=== PATIENT | female | born 1995 | race African-American/Black ===

== ENCOUNTER 2025-09-13 11:05 | Inpatient (IN) ==
--- NOTE | 2025-09-13 13:25 | XRay Report ---
XR chest 2V PA/lateral CLINICAL HISTORY: Shortness of breath. COMPARISON STUDY: Chest radiograph July 23, 2025. FINDINGS: There is moderate elevation of the right hemidiaphragm. A dual lumen right internal jugular central venous catheter remains in place. Mild enlargement of the cardiac silhouette is unchanged. M ediastinal contours are stable. There is no pneumothorax. There are suspected trace bilateral pleural effusions. Interstitial thickening has developed. There are mild left basilar opacities. IMPRESSION: 1. Interval development of interstitial thickening suggestive of interstitial pulmonary edema. 2. Mild left basilar opacities. A superimposed infectious process cannot be excluded. Radiographic fo llow-up to ensure resolution is recommended. ACT 112: Negative or not required by law. Electronically signed by: Mandeep Garcia M.D. 09/13/2025 1:23 PM
[2025-09-13 15:33] LABS: Albumin Level 4.9 gm/dl (3.4-5.0); Anion Gap 14 (3-11); Bilirubin,Total 0.3 mg/dl (0.2-1.0); Calcium 10.0 mg/dl (8.6-10.3); Carbon Dioxide 29 mmol/L (21-32); Chloride 94 mmol/L (98-107); Magnesium 1.8 mg/dl (1.7-2.4); Potassium 2.7 mmol/L (3.5-5.1); Sodium 137 mmol/L (136-145)
[2025-09-13 15:34] LABS: Alanine Aminotransferase 8 U/L (7-52); Albumin Globulin Ratio 1.1 (0.9-2); Alkaline Phosphatase 107 U/L (34-104); Blood Urea Nitrogen 30 mg/dl (6-23); Globulin 4.4 gm/dl (2.5-4.0); Glucose 83 mg/dl (70-99(Fasting)); Total Protein 9.3 gm/dl (6.0-8.3)
[2025-09-13] MEDS: POTASSIUM CHLORIDE CRTAB 20 MEQ TABCR PO STA (15:38)
[2025-09-13 15:50] LABS: Hematocrit (blood only) 23.5 % (37.0-47.0); Hemoglobin 7.4 g/dL (12.0-16.0); Immature Granulocytes # (auto) 0.03 K/uL (0.01-0.20); Immature Granulocytes % (auto) 0.4 %; Mean Corpuscular Hemoglobin 28.2 pg (25.0-34.0); Mean Corpuscular Volume 89.7 fL (80.0-100.0); Platelet Count 180 K/uL (130-400); RDW Standard Deviation 46.5 fL (36.4-46.3); Red Blood Count 2.62 M/uL (4.20-5.40); White Blood Count 7.34 K/ul (4.8-10.8)
--- NOTE | 2025-09-13 15:53 | Emergency Department Note ---
History of Present Illness General Chief complaint: Shortness of Breath/Dyspnea Stated complaint: SOB Source: patient Mode of arrival: ambulatory Limitations: no limitations History of Present Illness Patient is a 30 y.o. F with h/o ESRD on home HD, SLE, HTN, Chronic anemia who presents after syncopal event today. She was just finishing up her dialysis session when she got up from her chair and felt lightheaded and passed out. Loss of consciousness was brief. She did report some shortness of breath after dialysis that has resolved. Denies any recent fevers, chills, headache, vision change, speech change, numbness or weakness to her face or extremities. No reported chest pain, abdominal pain, nausea or vomiting. She says she has had prior syncopal events related to taking too much fluid off during dialysis which she may have done today. Home Medications Medication Instructions Recorded Confirmed Type hydroxychloroquine 200 mg tablet 200 mg PO Q OTHER DAY 07/23/25 07/23/25 History (Plaquenil) mycophenolate mofetil 200 mg/mL 600 mg PO BID 07/23/25 07/23/25 History oral suspension prednisone 5 mg tablet 5 mg PO DAILY 07/23/25 07/23/25 History sildenafil (pulm.hypertension) 20 20 mg PO TID 07/23/25 07/23/25 History mg tablet acetaminophen 325 mg tablet 650 mg (2 x 325 mg) PO Q4H PRN 07/24/25 Rx fever or pain #300 tabs sacubitril 24 mg-valsartan 26 mg 1 tab PO BID #60 tabs 07/24/25 Rx tablet (Entresto) Allergies Allergy/AdvReac Type Severity Reaction Status Date / Time heparin AdvReac Unverified 07/24/25 08:46 Past Med/Surg History Problem List (Updated 09/13/25 @ 16:21 by Mamadou Carpenter MD) Pulmonary edema (Acute) Acute hypokalemia (Acute) Acute on chronic anemia (Acute) Syncope (Acute) Anemia secondary to renal failure Chronic respiratory failure Immunosuppression due to chronic steroid use SLE (systemic lupus erythematosus) Uncontrolled hypertension Pulmonary hypertension associated with chronic renal failure on dialysis Viral syndrome Viral gastroenteritis Vascular dialysis catheter in place Hypertension Dizziness ESRD on dialysis (Acute) Generalized body aches (Acute) Social History Smoking Status: Never smoker Hx Alcohol Use: No Hx Substance Use: No Preferred Language: Bhutanese Communication Ability: Effective Rail Director Required: No Beliefs That Will Affect Care: None Current Living Situation: Alone Current Living Situation Comment: with her 5 year old son Feels Safe at Home: Yes Assistive Devices: Oxygen - at Night Review of Systems Review of systems negative outside of positive findings mentioned in HPI. Physical Exam Vital Signs Vital Signs - 24 hr 09/13/25 11:18 09/13/25 14:30 09/13/25 15:22 Temperature 36.4 C L Temperature Source Oral Pulse Rate Pulse Rate [Apical] 108 H 99 H 96 H Pulse Rate from SpO2 Sensor Pulse Rhythm [Apical] Regular Pulse Strength [Apical] Normal Respiratory Rate 16 18 Respiratory Effort / Characteristics Non-Labored Spontaneous Respiratory Depth Normal Normal Blood Pressure [Left Arm] 158/101 H 157/114 H 152/85 H Blood Pressure Mean [Left Arm] 120 128 107 Blood Pressure Position [Left Arm] Lying Lying Pulse Oximetry 99 100 100 Oxygen Delivery Method Room Air Nasal Cannula Room Air Oxygen Flow Rate 2 09/13/25 15:24 09/13/25 15:30 09/13/25 15:34 Temperature Temperature Source Pulse Rate 99 H 92 H 98 H Pulse Rate [Apical] Pulse Rate from SpO2 Sensor 99 H 94 H Pulse Rhythm [Apical] Pulse Strength [Apical] Respiratory Rate 14 27 H Respiratory Effort / Characteristics Respiratory Depth Blood Pressure [Left Arm] Blood Pressure Mean [Left Arm] Blood Pressure Position [Left Arm] Pulse Oximetry 100 100 Oxygen Delivery Method Nasal Cannula Nasal Cannula Oxygen Flow Rate 2 2 09/13/25 16:00 Temperature Temperature Source Pulse Rate 88 Pulse Rate [Apical] Pulse Rate from SpO2 Sensor 89 Pulse Rhythm [Apical] Pulse Strength [Apical] Respiratory Rate 35 H Respiratory Effort / Characteristics Respiratory Depth Blood Pressure [Left Arm] Blood Pressure Mean [Left Arm] Blood Pressure Position [Left Arm] Pulse Oximetry 100 Oxygen Delivery Method Nasal Cannula Oxygen Flow Rate 2 See below. Constitutional WD/WN, vitals as above Respiratory diffuse rhonchi, mild tachypnea, no accessory muscle use Cardiovascular Rate/Rhythm: + tachycardic Heart Sounds: normal S1 and normal S2 Extremities: no edema Course Administered Medications Discontinued Medications Potassium Chloride (Potassium Chloride Crtab 20 Meq Tabcr) 60 meq PO NOW STA Stop: 09/13/25 15:28 Last Admin: 09/13/25 15:38 Dose: 60 meq Documented By: shanna Medical Decision Making Differential Diagnosis DDx includes but not limited to: Cardiac arrhythmia, acute anemia, metabolic abnormality, vasovagal syncope, orthostatic hypotension Medical Records Attestation: I reviewed the patient's medical records. Home Medications Current Medication List: was personally reviewed by me Laboratory Data Attestation: I reviewed the patient's lab results. 09/13/25 15:20 09/13/25 12:29 Lab Results 09/13/25 09/13/25 09/13/25 Range/Units 12:12 12:29 15:20 WBC Cancelled 7.34 RBC Cancelled 2.62 L Hgb Cancelled 7.4 L Hct Cancelled 23.5 L MCV Cancelled 89.7 MCH Cancelled 28.2 MCHC Cancelled 31.5 L RDW Std Deviation Cancelled 46.5 H RDW Coeff of Ignacio Cancelled 14.3 Plt Count Cancelled 180 MPV Cancelled 11.8 Immature Gran % (Auto) Cancelled 0.4 Neut % (Auto) Cancelled 85.3 Lymph % (Auto) Cancelled 5.2 [place] % (Auto) Cancelled 8.3 Eos % (Auto) Cancelled 0.5 Baso % (Auto) Cancelled 0.3 Neut # (Auto) Cancelled 6.26 Lymph # (Auto) Cancelled 0.38 L [place] # (Auto) Cancelled 0.61 H Eos # (Auto) Cancelled 0.04 Baso # (Auto) Cancelled 0.02 Immature Gran # (Auto) Cancelled 0.03 Absolute Nucleated RBC Cancelled Nucleated RBC % (auto) Cancelled Neutrophils % (Manual) Cancelled Band Neutrophils % Cancelled Lymphocytes % (Manual) Cancelled Prolymphocyte % Cancelled Reactive Lymphs % (Man) Cancelled Monocytes % (Manual) Cancelled Eosinophils % (Manual) Cancelled Basophils % (Manual) Cancelled Metamyelocytes % (Man) Cancelled Myelocytes % (Man) Cancelled Promyelocytes % (Man) Cancelled Blast Cells % (Manual) Cancelled Plasma Cell % (Manual) Cancelled Other Cells % Cancelled Nucleated RBC % Cancelled Neutrophils # (Manual) Cancelled Band Neutrophils # Cancelled Total Absolute Neuts Cancelled Lymphocytes # (Manual) Cancelled Prolymphocyte # Cancelled Reactive Lymphs # Cancelled Total Abs Lymphocytes Cancelled Monocytes # (Manual) Cancelled Eosinophils # (Manual) Cancelled Basophils # (Manual) Cancelled Metamyelocytes # (Man) Cancelled Myelocytes # (Manual) Cancelled Promyelocytes # (Man) Cancelled Blast Cells # (Man) Cancelled Plasma Cell # (Manual) Cancelled Other Cells # Cancelled Nucleated RBCs # (Man) Cancelled Hypersegmented Neuts Cancelled Hyposegmented Neuts Cancelled Hypogranular Neuts Cancelled Large Granular Lymphs Cancelled # Lrg Granular Lymphs Cancelled Hairy Cells Cancelled Smudge Cells Cancelled Toxic Granulation Cancelled Toxic Vacuolation Cancelled Dohle Bodies Cancelled Jocelyn Rods Cancelled Platelet Estimate Cancelled Hypogranular Platelets Cancelled Giant Platelets Cancelled Platelet Satelliting Cancelled RBC Morphology Cancelled Polychromasia Cancelled Hypochromasia Cancelled Poikilocytosis Cancelled Basophilic Stippling Cancelled Anisocytosis Cancelled Present Microcytosis Cancelled Macrocytosis Cancelled Spherocytes Cancelled Pappenheimer Bodies Cancelled Sickle Cells Cancelled Target Cells Cancelled Tear Drop Cells Cancelled 1+ Ovalocytes Cancelled 1+ Stomatocytes Cancelled [place] Bodies Cancelled Echinocytes Cancelled Acanthocytes (Spur) Cancelled Rouleaux Cancelled RBC Agglutinates Cancelled Schistocytes Cancelled Sezary Cell Cancelled Sodium 137 (136-145) mmol/L Potassium 2.7 L (3.5-5.1) mmol/L Chloride 94 L (98-107) mmol/L Carbon Dioxide 29 (21-32) mmol/L Anion Gap 14 H (3-11) BUN 30 H (6-23) mg/dl Creatinine 6.75 H* (0.6-1.2) mg/dl Est Cr Clr Drug Dosing Not Reportable eGFR 7.76 BUN/Creatinine Ratio 4.4 L (10-20) Glucose 83 (70-99(Fasting)) mg/dl Calcium 10.0 (8.6-10.3) mg/dl Magnesium 1.8 (1.7-2.4) mg/dl Total Bilirubin 0.3 (0.2-1.0) mg/dl AST 17 (13-39) U/L ALT 8 (7-52) U/L Alkaline Phosphatase 107 H (34-104) U/L Troponin I High Sens 63.5 H* (0-14) pg/ml Total Protein 9.3 H (6.0-8.3) gm/dl Albumin 4.9 (3.4-5.0) gm/dl Globulin 4.4 H (2.5-4.0) gm/dl Albumin/Globulin Ratio 1.1 (0.9-2) Blood Parasites ID Cancelled Blood Type O Positive Antibody Screen NEGATIVE Imaging Data Attestation: I personally reviewed and interpreted this imaging study as follows: My Impression: Interstitial edema noted, basilar opacities on the left Radiologist's Impression: Chest X-Ray 09/13/25 00:00 XR chest 2V PA/lateral CLINICAL HISTORY: Shortness of breath. COMPARISON STUDY: Chest radiograph July 23, 2025. FINDINGS: There is moderate elevation of the right hemidiaphragm. A dual lumen right internal jugular central venous catheter remains in place. Mild enlargement of the cardiac silhouette is unchanged. Mediastinal contours are stable. There is no pneumothorax. There are suspected trace bilateral pleural effusions. Interstitial thickening has developed. There are mild left basilar opacities. IMPRESSION: 1. Interval development of interstitial thickening suggestive of interstitial pulmonary edema. 2. Mild left basilar opacities. A superimposed infectious process cannot be excluded. Radiographic follow-up to ensure resolution is recommended. ACT 112: Negative or not required by law. Electronically signed by: Mandeep Garcia M.D. 09/13/2025 1:23 PM ECG Data Attestation: I personally reviewed and interpreted this ECG as follows: Indication: + SOB/dyspnea and + tachycardia Rate (beats per minute): 106 Rhythm: + sinus tachycardia ECG Intervals/blocks: + Normal QRS, + Prolonged QT and + Normal NC ECG [place]: + Normal ECG ST segments: + Nonspecific ST abnormalities ECG Findings: + LVH Comparison ECG Date: from (08/22/2025) Additional Comments: Ventricular rate elevated from prior. Blood Pressure Blood Pressure Findings: Elevated blood pressure MDM Narrative Patient is a 30-year-old female with history of end-stage renal disease on home dialysis who presents after syncopal event. She did not complete her dialysis session today. On arrival here in the emergency room she is awake and alert. Hemodynamically stable. No focal neurologic deficits noted. No concerning prodrome prior to syncopal event. Likely secondary to overdiuresis. Lab work was reviewed. Acute on chronic anemia noted. Baseline of 9-9.5. Hemoglobin today of 7.4. CMP shows evidence of hypokalemia at 2.7. This was repleted orally here in the ED at patient request. Troponin elevated likely secondary to chronic disease. Chest x-ray reviewed and notable for diffuse interstitial edema. Opacity noted in the left basilar region. More consistent with atelectasis versus pulmonary edema. No other signs of infection or concern for pneumonia at this time. She was given a liter of IV fluids here today however around 200 mL into the liter patient requested to discontinue the fluids due to increased work of breathing. A total of 200 mL of IV fluids was given. I had a long discussion with the patient and recommend she be admitted for inpatient dialysis as well as repletion of her potassium and gradual weaning off of oxygen. I am concerned about her going home requiring oxygen and at this time and would also like to monitor in the setting of her syncopal event that was more consistent with orthostatic hypotension. Patient is agreeable to admission. Stable for admission to hospitalist service. Will need monitored bed. Impression & Plan ESRD on dialysis, Syncope, Acute on chronic anemia, Acute hypokalemia, Pulmonary edema Discharge Plan Visit Data Chief Complaint: Shortness of Breath/Dyspnea Stated Complaint: SOB ED Provider: Mamadou Carpenter Discharge Problem: ESRD on dialysis, Syncope, Acute on chronic anemia, Acute hypokalemia, Pulmonary edema Patient Disposition: Admitted As Inpatient Condition: Good Forms Stand Alone Forms: My [facility] Prescriptions Prescriptions: No Action prednisone 5 mg Tablet 5 mg PO DAILY hydroxychloroquine [Plaquenil] 200 mg Tablet 200 mg PO Q OTHER DAY sildenafil (pulm.hypertension) 20 mg Tablet 20 mg PO TID Rx Instructions: administer doses at least 4-6 hours apart mycophenolate mofetil 200 mg/mL Suspension 600 mg PO BID acetaminophen 325 mg Tablet 650 mg PO Q4H PRN (Reason: fever or pain) Qty: 300 0RF sacubitril-valsartan [Entresto] 24-26 mg tablet 1 tab PO BID Qty: 60 0RF Referrals Referrals: PCP,NO [Primary Care Provider] -
[2025-09-13 16:09] LABS: Anisocytosis Present; Ovalocytes 1+; Tear Drop Cells 1+
--- NOTE | 2025-09-13 17:31 | History & Physical Report ---
Date of Service September 13, 2025 Assessment & Plan (1) Syncope: Plan: 30 year old female with SLE on CellCept and prednisone, ESRD on home hemodialysis, HFrEF, pulmonary hypertension, and other problems listed below who presents to the ED after syncopal episode. Patient reports she was at the end of her dialysis treatment when she passed out. She thinks she may have been unconscious for about 30 minutes. In the ED, labs show hgb 7.4, K+ 2.7, HS troponin 63.5. EKG shows t-wave inversions in the lateral leads. Patient was given IVF and became short of breath and required 2L NC. Patient reports she is feeling improved. Per chart review, cardiac cath 07/2023 without CAD HS troponin 63.5, continue to trend EKG shows t-wave inversions in the lateral leads, denies chest pain. Consider IV heparin if rising troponin. Echo (2) Acute on chronic anemia: Plan: Hgb 7.4 (9.1 07/2025) No signs of bleeding Likely due to CKD -- patient also reports being unable to return her blood from home HD machine after today's treatment Check iron studies, consider IV venofer Will defer procrit to nephro (3) ESRD on dialysis: Plan: On home hemodialysis via right TDC Developed shortness of breath and O2 requirement after IVF in the ED -- patient feeling improved once IVF stopped Nephro consult (4) Acute hypokalemia: Plan: K+ 2.7 -- replacing, continue to follow electrolytes Mg+ 1.8 (5) HFrEF (heart failure with reduced ejection fraction): Plan: Per chart review, EF 30% 07/2024 - previously as low as 15% Updating echo Continue DIRECTOR OF DIAGNOSTIC IMAGING Entresto (6) Pulmonary hypertension associated with chronic renal failure on dialysis: Plan: Continue DIRECTOR OF DIAGNOSTIC IMAGING sildenafil (7) SLE (systemic lupus erythematosus): Plan: Continue DIRECTOR OF DIAGNOSTIC IMAGING prednisone and cellcept (8) LV (left ventricular) mural thrombus: Plan: No longer on anticoagulation per outside chart review DVT PROPHYLAXIS SCDs Patient seen in collaboration with Dr. Garcia. I spent a total of 74 minutes coordinating, documenting, and providing care for this patient excluding time spent in the performance of separately billed services. This included personally reviewing all current laboratories and imaging studies, medication reconciliation, outpatient chart review, and discussion with specialists. History of Present Illness Chief Complaint: Syncope Primary Care Provider: Joan Adeel, MD 30 year old female with SLE on CellCept and prednisone, ESRD on home hemodialysis, HFrEF, pulmonary hypertension, LV thrombus, and other problems listed below who presents to the ED after syncopal episode. Patient reports she was at the end of her dialysis treatment when she passed out. She thinks she may have been unconscious for about 30 minutes. Reports she started home hemodialysis a few weeks ago. Reports she otherwise has been feeling well recently. Denies any other recent illnesses, fever, or chills. No chest pain or shortness of breath. Denies abdominal pain, nausea, vomiting, diarrhea. No urinary symptoms. In the ED, labs show hgb 7.4, K+ 2.7, HS troponin 63.5. EKG shows t-wave inversions in the lateral leads. Patient was given IVF and became short of breath and required 2L NC. Patient reports she is feeling improved. Allergies Allergy/AdvReac Type Severity Reaction Status Date / Time latex Allergy Unknown Unverified 09/13/25 16:41 heparin AdvReac Unknown Unverified 09/13/25 16:41 Home Medications Medication Instructions Recorded Confirmed Type hydroxychloroquine 200 mg tablet 200 mg PO Q OTHER DAY 07/23/25 09/13/25 History (Plaquenil) mycophenolate mofetil 200 mg/mL 620 mg PO BID 07/23/25 09/13/25 History oral suspension prednisone 5 mg tablet 5 mg PO DAILY 07/23/25 09/13/25 History sildenafil (pulm.hypertension) 20 20 mg PO TID 07/23/25 09/13/25 History mg tablet sacubitril 24 mg-valsartan 26 mg 1 tab PO BID #60 tabs 07/24/25 09/13/25 Rx tablet (Entresto) Past Med/Surg History Problem List (Updated 09/13/25 @ 17:38 by TRENT Barreto) LV (left ventricular) mural thrombus HFrEF (heart failure with reduced ejection fraction) Pulmonary edema (Acute) Acute hypokalemia (Acute) Acute on chronic anemia (Acute) Syncope (Acute) Anemia secondary to renal failure Chronic respiratory failure Immunosuppression due to chronic steroid use SLE (systemic lupus erythematosus) Uncontrolled hypertension Pulmonary hypertension associated with chronic renal failure on dialysis Viral syndrome Viral gastroenteritis Vascular dialysis catheter in place Hypertension Dizziness ESRD on dialysis (Acute) Generalized body aches (Acute) Social History Smoking Status: Never smoker Hx Alcohol Use: No Hx Substance Use: No Preferred Language: Kiswahili Communication Ability: Effective Logistics Coordinator Required: No Beliefs That Will Affect Care: None Current Living Situation: Alone Current Living Situation Comment: with her 5 year old son Feels Safe at Home: Yes Assistive Devices: Oxygen - at Night Physical Exam Constitutional: WD/WN, vitals as above no acute distress Respiratory: normal respiratory effort; no respiratory distress Auscultation: + diminished lung sounds Cardiovascular: Rate/Rhythm: regular rate and regular rhythm Vessels: normal peripheral pulses Extremities: no edema Chest (Breasts): Chest: + vascular access device or port (TDC right chest) Skin: no rashes, warm and dry Neurologic: no focal motor deficits Psychiatric: A+Ox3, euthymic affect Results & Data Results & Data Vital Signs (Past 12 Hours) Vital Signs Temp Pulse Pulse Resp BP Pulse Ox O2 Del Method 09/13/25 16:00 88 35 H 100 Nasal Cannula 09/13/25 15:34 98 H 09/13/25 15:30 92 H 27 H 100 Nasal Cannula 09/13/25 15:24 99 H 14 100 Nasal Cannula 09/13/25 15:22 96 H 18 152/85 H 100 Room Air 09/13/25 14:30 99 H 157/114 H 100 Nasal Cannula 09/13/25 11:18 36.4 C L 108 H 16 158/101 H 99 Room Air O2 Flow Rate 09/13/25 16:00 2 09/13/25 15:34 09/13/25 15:30 2 09/13/25 15:24 2 09/13/25 15:22 09/13/25 14:30 2 09/13/25 11:18 Laboratory Results Short CBC 09/13/25 09/13/25 Range/Units 12:29 15:20 WBC Cancelled 7.34 Hgb Cancelled 7.4 L Hct Cancelled 23.5 L Plt Count Cancelled 180 BMP 09/13/25 12:29 Sodium 137 Potassium 2.7 L Chloride 94 L Carbon Dioxide 29 BUN 30 H Creatinine 6.75 H* Glucose 83 Calcium 10.0 Liver Function 09/13/25 Range/Units 12:29 Total Bilirubin 0.3 (0.2-1.0) mg/dl AST 17 (13-39) U/L ALT 8 (7-52) U/L Alkaline Phosphatase 107 H (34-104) U/L Albumin 4.9 (3.4-5.0) gm/dl Diagnostic Findings Chest X-Ray 09/13/25 00:00 XR chest 2V PA/lateral CLINICAL HISTORY: Shortness of breath. COMPARISON STUDY: Chest radiograph July 23, 2025. FINDINGS: There is moderate elevation of the right hemidiaphragm. A dual lumen right internal jugular central venous catheter remains in place. Mild enlargement of the cardiac silhouette is unchanged. Mediastinal contours are stable. There is no pneumothorax. There are suspected trace bilateral pleural effusions. Interstitial thickening has developed. There are mild left basilar opacities. IMPRESSION: 1. Interval development of interstitial thickening suggestive of interstitial pulmonary edema. 2. Mild left basilar opacities. A superimposed infectious process cannot be excluded. Radiographic follow-up to ensure resolution is recommended. ACT 112: Negative or not required by law. Electronically signed by: Mandeep Garcia M.D. 09/13/2025 1:23 PM Supervising Physician Co-Signing Physician Notes 31-year-old with PMH SLE on CellCept and prednisone, ESRD on home HD, HFrEF, PHTN presents to the ED with complaint of syncopal episode after hemodialysis at home today. She states that she may have been out for about 30 minutes, then she called her significant other who called EMS. She also reports that she has had syncopal episodes after hemodialysis in the past when she has taken off too much fluid during dialysis. otherwise patient denies any fever/sore throat/cough/chest pain/belly pain/any other review of symptoms. Here in the ED patient received about 200 mL IV fluid and then started feeling acutely short of breath and was noted to be hypoxic. Currently on 2 L oxygen. Labs reviewed elevated troponin, could be in the setting of Chronic kidney disease, will trend troponin. Potassium of 2.7, patient received 60 mEq potassium in the ED. Will repeat potassium level/BMP around 7:30 PM. Will get orthostatic vitals, nephrology consult. Will get echo. Follow H&H closely, patient denies any bloody stool or black stool. On exam: Patient on 2 L oxygen via nasal cannula, by withdrawal dry crackles on auscultation, heart and abdomen examination fairly WNL, rest of the examination as above. Total time spent independently: 23 minutes. I have seen and examined the patient and have discussed the case with the provider above. I agree with the assessment and plan as stated.
[2025-09-13 18:07] LABS: Iron 56.0 mcg/dl (35-150); Transferrin 181.0 mg/dl (200-360)
[2025-09-13 18:28] LABS: Ferritin 573.7 ng/ml (8-388)
[2025-09-13] MEDS ORDERED: ACETAMINOPHEN 325 MG TAB PO PRN (18:33)
[2025-09-13] MEDS: Patient's HEIGHT &/or WEIGHT Needed STA (18:52)
[2025-09-13] MEDS: VALSARTAN/SACUBITRIL 26/24MG TAB PO SCH (20:56)
[2025-09-13] MEDS: SILDENAFIL CITRATE 20 MG TABLET PO SCH (20:56)
[2025-09-13 22:27] LABS: Anion Gap 13.0 (3-11); Blood Urea Nitrogen 37.0 mg/dl (6-23); Calcium 8.7 mg/dl (8.6-10.3); Carbon Dioxide 28.0 mmol/L (21-32); Chloride 98.0 mmol/L (98-107); Creatinine Clr Calc Pharmacy 7.8 ml/min; Glucose 118.0 mg/dl (70-99(Fasting)); Potassium 3.4 mmol/L (3.5-5.1); Sodium 139.0 mmol/L (136-145)
[2025-09-13] MEDS: MYCOPHENOLATE SUSP 200 MG/1 ML PO SCH (23:14)
[2025-09-14 07:02] LABS: Anion Gap 13.0 (3-11); Blood Urea Nitrogen 41.0 mg/dl (6-23); Calcium 8.6 mg/dl (8.6-10.3); Carbon Dioxide 28.0 mmol/L (21-32); Chloride 100.0 mmol/L (98-107); Creatinine Clr Calc Pharmacy 6.9 ml/min; Glucose 82.0 mg/dl (70-99(Fasting)); Potassium 4.0 mmol/L (3.5-5.1); Sodium 141.0 mmol/L (136-145)
[2025-09-14 07:32] LABS: Hematocrit (blood only) 21.5 % (37.0-47.0); Hemoglobin 6.7 g/dL (12.0-16.0); Mean Corpuscular Hemoglobin 28.0 pg (25.0-34.0); Mean Corpuscular Volume 90.0 fL (80.0-100.0); Platelet Count 175 K/uL (130-400); RDW Standard Deviation 47.8 fL (36.4-46.3); Red Blood Count 2.39 M/uL (4.20-5.40); White Blood Count 4.71 K/ul (4.8-10.8)
[2025-09-14] MEDS ORDERED: SODIUM CHLORIDE 0.9% 100 ML IV PRN ×2 (07:38→11:37)
[2025-09-14] MEDS ORDERED: SODIUM CHLORIDE 0.9% 1,000 ML IV PRN (08:17)
[2025-09-14] MEDS: HYDROXYCHLOROQUINE SULFATE 200 MG TAB PO SCH (08:52)
--- NOTE | 2025-09-14 09:50 | CT Scan Report ---
CT head/brain wo con CLINICAL HISTORY: 30 years-old Female with Syncope. Acute syncope TECHNIQUE: Multiple axial CT images of the head were obtained without contrast. A dose lowering tech nique was utilized adhering to the principles of ALARA. CT DOSE: 625.8 mGy.cm COMPARISON: None. FINDINGS: No acute intracranial hemorrhage, midline shift, intracranial mass, hydrocephalus, territorial ischem ia or abnormal extra-axial collection. Coarse calcifications of the falx cerebri. Additional small ca lcifications in the left lentiform nucleus. The calvarium is intact. Minimal mucosal thickening of the paranasal sinuses. Mastoid air cells are clear. IMPRESSION: No acute intracranial abnormality. ACT 112: Negative or not required by law. The above report was generated using voice recognition software. It may contain grammatical, syntax o r spelling errors. Electronically signed by: Kameron Saxena M.D. 09/14/2025 9:48 AM
[2025-09-14 12:38] LABS: Hep B Surface Ag with confirm Negative (Negative)
--- NOTE | 2025-09-14 13:52 | XCELERA ---
[id number]
--- NOTE | 2025-09-14 15:16 | Hospitalist Progress Note ---
Date of Service September 14, 2025 Assessment & Plan (1) Syncope: Plan: 30 year old female with SLE on CellCept and prednisone, ESRD on home hemodialysis, HFrEF, pulmonary hypertension, and other problems listed below who presents to the ED after syncopal episode. Patient reports she was at the end of her dialysis treatment when she passed out. She thinks she may have been unconscious for about 30 minutes. In the ED, labs show hgb 7.4, K+ 2.7, HS troponin 63.5. EKG shows t-wave inversions in the lateral leads. Patient was given IVF and became short of breath and required 2L NC. Patient reports she is feeling improved. Syncope DD: Vasovagal, hypotension, hypoxia, rule out arrhythmia, electrolyte imbalance --CT Head:No acute intracranial abnormality. --ECHO: Moderate global hypokinesis of left ventricle. --Normal orthostatics --H/O Cardiac cath 07/2023 without CAD per record Patient admits to being noncompliant with supplemental oxygen Monitor on telemetry Will need Zio patch as outpatient Cardiology consulted for further input Replace and monitor electrolytes as needed Acute on chronic anemia Denies any bleeding issues Likely due to anemia of chronic disease --Iron level 56 Will transfuse 1 unit PRBC today Monitor H&H Will defer Procrit to nephrology Troponin elevation Likely demand ischemia in setting of hypertensive urgency, renal failure Denies any chest pain Echo showed no wall motion abnormality Troponins trended down Chronic respiratory failure with hypoxia Secondary to pulmonary hypertension Continue sildenafil Will need 2 step prior to discharge (2) Acute on chronic anemia: Plan: Management as above (3) ESRD on dialysis: Plan: Volume overload On home hemodialysis via right TDC Dialysis as per nephrology Appreciate nephrology input Volume status managed through dialysis (4) Acute hypokalemia: Plan: Management as above (5) HFrEF (heart failure with reduced ejection fraction): Plan: EF better when compared to prior echo Continue Entresto (6) Pulmonary hypertension associated with chronic renal failure on dialysis: Plan: Continue [employer] sildenafil (7) SLE (systemic lupus erythematosus): Plan: Continue CellCept, prednisone, hydroxychloroquine (8) LV (left ventricular) mural thrombus: Plan: No longer on anticoagulation DVT Px: SCDs for now CODE STATUS Full code Admission and Anticipated Discharge Date Admission Date: September 14, 2025 Subjective Patient is seen and examined at bedside States feeling better today Offers no specific complaints Plan for hemodialysis today Denies any bleeding issues Also denies any chest pain, dyspnea, saturating well on nasal cannula Nausea, vomiting, abdominal pain, dizziness Review of Systems Review of Systems: All systems reviewed & are unremarkable except as noted in Subjective Physical Exam Physical Exam: Physical Exam: Vitals signs as noted above General Appearance:Thin, frail, no apparent distress Head: normocephalic, Atraumatic Eyes: normal inspection, EOMI Neck: supple, Trachea midline Respiratory/Chest: Normal breath sounds, B/L basal crackles, No accessory muscle use Cardiovascular: S1, S2, No murmur Abdomen/GI:Soft, Non tender, Bowel sounds present Extremities/Musculoskeletal:normal inspection, no edema Neurologic/Psych:AAOX3, grossly no focal neurological deficits Skin: normal color, warm Results & Data Results & Data Vital Signs (Past 12 Hours) Vital Signs Temp Pulse Pulse Pulse Resp BP BP 09/14/25 14:30 86 129/96 09/14/25 14:20 37.0 C 90 18 132/86 09/14/25 14:10 36.9 C 86 18 120/93 09/14/25 14:00 90 129/89 09/14/25 13:55 37.0 C 75 16 120/93 09/14/25 13:37 37.0 C 73 16 125/92 09/14/25 13:30 76 125/92 09/14/25 13:26 93 H 133/92 09/14/25 13:19 36.9 C 76 09/14/25 09:02 73 09/14/25 08:20 09/14/25 07:52 36.7 C 83 16 138/91 09/14/25 04:16 36.7 C 78 18 130/89 Pulse Ox O2 Del Method O2 Flow Rate 09/14/25 14:30 09/14/25 14:20 99 2 09/14/25 14:10 99 2 09/14/25 14:00 09/14/25 13:55 100 2 09/14/25 13:37 100 2 09/14/25 13:30 09/14/25 13:26 09/14/25 13:19 09/14/25 09:02 09/14/25 08:20 Nasal Cannula 2 09/14/25 07:52 100 Nasal Cannula 2 09/14/25 04:16 100 Nasal Cannula 2 Laboratory Results Short CBC 09/13/25 09/13/25 09/14/25 Range/Units 12:29 15:20 06:00 WBC Cancelled 7.34 4.71 L Hgb Cancelled 7.4 L 6.7 L* Hct Cancelled 23.5 L 21.5 L Plt Count Cancelled 180 175 BMP 09/13/25 09/13/25 09/14/25 12:29 Unknown 06:00 Sodium 137 139 141 Potassium 2.7 L 3.4 L D 4.0 Chloride 94 L 98 100 Carbon Dioxide 29 28 28 BUN 30 H 37 H 41 H Creatinine 6.75 H* 8.49 H* D 9.54 H* D Glucose 83 118 H 82 Calcium 10.0 8.7 8.6 Liver Function 09/13/25 Range/Units 12:29 Total Bilirubin 0.3 (0.2-1.0) mg/dl AST 17 (13-39) U/L ALT 8 (7-52) U/L Alkaline Phosphatase 107 H (34-104) U/L Albumin 4.9 (3.4-5.0) gm/dl
--- NOTE | 2025-09-14 16:58 | Cardiology Progress Note ---
Date of Service September 14, 2025 Assessment & Plan (1) HFrEF (heart failure with reduced ejection fraction): (2) Syncope: (3) Anemia secondary to renal failure: (4) Pulmonary edema: Plan: 30-year-old female with a past medical history of SLE and resultant end-stage renal disease. The patient has a history of a severe nonischemic cardiomyopathy, past left ventricular mural thrombus. Per my discussion with her she had previously been prescribed Eliquis and she states that she took it for about 3 months and discontinued it on her own. Past ejection fraction in the range of 15-20%, minimally improved at present to 20- 25% She describes a past history of a cardiac arrest with successful CPR and possible fibrillation, but the details are unknown. She presents this time for syncope which may be explained by her difficulties with low blood pressure after dialysis, and anemia, with a noted hemoglobin level today of 6.7 g /dl Telemetry performed this for this admission reveals sinus rhythm in the 80s. There are some brief runs of narrow complex tachycardia up into the 120s consistent with possible atrial tachycardia versus sinus tachycardia. Admission and Anticipated Discharge Date Admission Date: September 14, 2025 Tevin Fisher is a 30 year old female seen in cardiology consultation per the request of Dr Stein for the evaluation of syncope. The patient has a complex cardiac history dates back June, when she started hemodialysis and was living in [place]. She describes having a cardiac arrest event. It occurred after finishing a dialysis session. Per her description she received CPR defibrillation and medication therapy with spontaneous return of circulation. Limited records available in the [facility] feature of her Epic record include a note from [place] dated 06/18/23. The note describes a history of a nonischemic cardiomyopathy with negative cardiac catheterization. At that time she had been prescribed medication therapy including metoprolol succinate, torsemide, spironolactone. She had been prescribed a LifeVest wearable defibrillator but per the patient description she decided not to wear the LifeVest. Proceeding with an implantable defibrillator had been discussed with her but she declined. In 2023 describe a history of nonischemic cardiomyopathy with LVEF less than 15%, systemic lupus erythematosus, end-stage renal disease on hemodialysis, and interstitial lung disease. She had several hospitalizations for recurrent infection issues. Progress Notes from [facility] she subsequently moved from [place] back to her previous home in [place]. Her most recent complete echocardiogram study prior to today dates back to 02/29/2024 at [facility] in [place] describing ejection fraction in the range of 15 to 20% with severe global left ventricular hypokinesis. Moderate severe tricuspid regurgitation noted at that time with pulmonary artery systolic pressure estimated to be 50 to 55 mmHg. The patient states that she moved from [place] to [place] about 6 months ago. She has yet to establish with cardiology but has established with a primary care provider within the [facility]. She is undergoing home dialysis and yesterday she stated that she "kept on passing out "during session and that blood had thrombosed in the dialysis machine with reduced return of blood flow. She subsequently had a syncopal episode and was admitted to the hospital. At present, she is undergoing hemodialysis and is feeling well. Past Medical History: Systemic lupus erythematosus with resultant end-stage renal disease Interstitial lung disease Nonischemic cardiomyopathy Left ventricular apical mural thrombus Survived cardiac arrest 2022 No obstructive coronary artery disease, coronary angiography, [place], 2022 Social History: Single , with one child Review of Systems Review of Systems: All systems reviewed & are unremarkable except as noted in HPI & below Physical Exam Physical Exam: Temp Pulse Resp BP Pulse Ox O2 Del Method O2 Flow Rate 37.0 C 80 18 138/100 99 Nasal Cannula 2 09/14/25 14:20 09/14/25 17:00 09/14/25 14:20 09/14/25 17:00 09/14/25 14:20 09/14/25 08:20 09/14/25 14:20 General: no acute distress and stated age Eyes: conjunctiva are pink and non-injected, sclera clear Neck: normal jugular venous pulse, no hepatojugular reflux Chest: normal shape and normal respiratory effort Right sided tunneled dialysis catheter in place Lungs: clear to auscultation and percussion Cardiac Exam: - regular heart sounds, no murmurs, rubs, or gallops, no jugular venous distention Abdomen: abdomen soft, non-tender, no abnormal masses and no hepatosplenomegaly Musculoskeletal: no gait disturbance, no weakness Extremities: no edema and no cyanosis Neuro:awake, conversant, follows commands, no focal motor deficits Results & Data Diagnostic Findings EKG performed 09/13/2025 revealed sinus tachycardia 106 bpm, nonspecific repolarization abnormalities. Summary of echocardiogram performed today 09/14/2025: Addendum: Ejection fraction reassessed, and found to be severely diminished in the range of 20 to 25%. Left ventricular systolic function is severely reduced. Left Ventricular Ejection Fraction = 20-25%. There is severe global hypokinesis of the left ventricle There is normal left ventricular wall thickness. There is mild mitral regurgitation. There is mild tricuspid regurgitation. The pulmonary artery systolic pressure is estimated at 39 mmHg (mildly elevated). Compared to the report of the previous study performed within the [facility] dated 02/29/24, the left ventricular ejection fraction was in the range of 15-20% at that time. Moderate-severe tricuspid regurgitation was observed at that time with pulmonary artery systolic pressure estimated to be in the range of 50-55 mm Hg that time. The left ventricular apical mural thrombus was also described at that time and is not appreciated on the present study. Chest x-ray on admission suggestive of pulmonary edema PG Care Time/CCT Total # of Minutes Spent Total Time Spent with Patient: Total time spent is greater than 50% in coordination of care (as documented) at patient's floor/unit and/or counseling patient: Coding Diagnoses HFrEF (heart failure with reduced ejection fraction) I50.20 Syncope R55 Anemia secondary to renal failure N18.9; D63.1 Pulmonary edema J81.1
--- NOTE | 2025-09-14 17:29 | Cardiology Consultation ---
Date of Consultation September 14, 2025 Assessment & Plan (1) HFrEF (heart failure with reduced ejection fraction): (2) Syncope: (3) Anemia secondary to renal failure: (4) Pulmonary edema: (1) HFrEF (heart failure with reduced ejection fraction): (2) Syncope: (3) Anemia secondary to renal failure: (4) Pulmonary edema: Plan: 30-year-old female with a past medical history of SLE and resultant end-stage renal disease. The patient has a history of a severe nonischemic cardiomyopathy, past left ventricular mural thrombus. Per my discussion with her she had previously been prescribed Eliquis and she states that she took it for about 3 months and discontinued it on her own. Past ejection fraction in the range of 15-20%, minimally improved at present to 20- 25% She describes a past history of a cardiac arrest with successful CPR and possible fibrillation, but the details are unknown. She presents this time for syncope which may be explained by her difficulties with low blood pressure after dialysis, and anemia, with a noted hemoglobin level today of 6.7 g /dl Telemetry performed this for this admission reveals sinus rhythm in the 80s. There are some brief runs of narrow complex tachycardia up into the 120s consistent with possible atrial tachycardia versus sinus tachycardia. As noted, patient had previously been prescribed a wearable defibrillator (LifeVest) but has not been adherent with this. Per our conversation, she implantable defibrillator had previously been discussed as had cardiac transplant in the past. She had previously been followed by [place] as well as the advanced heart failure/pulmonary hypertension specialists at [facility]. Per review of her chart, she has had multiple instances of infection and past bacteremia and then together with her personal preference likely explains why she does not have an implantable defibrillator and have not considered to be at very high risk for preprocedure complication. If she would be agreeable, perhaps a LifeVest would be the best option given her indwelling hemodialysis catheter and risk of recurrent infection. When I asked her about her medications, she states that she takes Entresto "sometimes ". Summary of recommendations: Continue Entresto as tolerated Continue sildenafil 20 mg p.o. 3 times daily as tolerated Continue volume management with hemodialysis Monitor on telemetry. Zio Patch and repeat echocardiogram recommended at discharge. Rosalind Eden DO I spent a total of 80 minutes on the date of service in preparation, delivery, and documentation of the care provided to this patient, excluding any time spent in the performance of separately billed services. History of Present Illness Attending Physician: Abhishek Stein MD History of Present Illness Sandra Fisher is a 30 year old female seen in cardiology consultation per the request of Dr Stein for the evaluation of syncope. The patient has a complex cardiac history dates back June, when she started hemodialysis and was living in [place]. She describes having a cardiac arrest event. It occurred after finishing a dialysis session. Per her description she received CPR defibrillation and medication therapy with spontaneous return of circulation. [facility] Epic record include a note from [place] dated 06/18/23. The note describes a history of a nonischemic cardiomyopathy with negative cardiac catheterization. At that time she had been prescribed medication therapy including metoprolol succinate, torsemide, spironolactone. She had been prescribed a LifeVest wearable defibrillator but per the patient description she decided not to wear the LifeVest. Proceeding with an implantable defibrillator had been discussed with her but she declined. In 2023 describe a history of nonischemic cardiomyopathy with LVEF less than 15%, systemic lupus erythematosus, end-stage renal disease on hemodialysis, and interstitial lung disease. She had several hospitalizations for recurrent infection issues. Progress Notes from [facility] she subsequently moved from [place] back to her previous home in [place]. Her most recent complete echocardiogram study prior to today dates back to 02/29/2024 at [facility] in [place] describing ejection fraction in the range of 15 to 20% with severe global left ventricular hypokinesis. Moderate severe tricuspid regurgitation noted at that time with pulmonary artery systolic pressure estimated to be 50 to 55 mmHg. The patient states that she moved from [place] to [place] about 6 months ago. She has yet to establish with cardiology but has established with a primary care provider within the [facility]. She is undergoing home dialysis and yesterday she stated that she "kept on passing out "during session and that blood had thrombosed in the dialysis machine with reduced return of blood flow. She subsequently had a syncopal episode and was admitted to the hospital. At present, she is undergoing hemodialysis and is feeling well. Past Medical History: Systemic lupus erythematosus with resultant end-stage renal disease Interstitial lung disease Nonischemic cardiomyopathy Left ventricular apical mural thrombus Survived cardiac arrest 2022 No obstructive coronary artery disease, coronary angiography, [place], 2022 Social History: Single , with one child Allergies Allergy/AdvReac Type Severity Reaction Status Date / Time latex Allergy Unknown Unverified 09/13/25 16:41 heparin AdvReac Unknown Unverified 09/13/25 16:41 Home Medications Medication Instructions Recorded Confirmed Type hydroxychloroquine 200 mg tablet 200 mg PO Q OTHER DAY 07/23/25 09/13/25 History (Plaquenil) mycophenolate mofetil 200 mg/mL 620 mg PO BID 07/23/25 09/13/25 History oral suspension prednisone 5 mg tablet 5 mg PO DAILY 07/23/25 09/13/25 History sildenafil (pulm.hypertension) 20 20 mg PO TID 07/23/25 09/13/25 History mg tablet sacubitril 24 mg-valsartan 26 mg 1 tab PO BID #60 tabs 07/24/25 09/13/25 Rx tablet (Entresto) Patient History Social History Smoking Status: Never smoker Hx Alcohol Use: No Hx Substance Use: No Preferred Language: Latvian Communication Ability: Effective Research Advisor Required: No Beliefs That Will Affect Care: None Current Living Situation: Significant Other and Other Current Living Situation Comment: With significant other and son Other Information That Helps Us Care for You: No Feels Safe at Home: Yes Safety Concerns: Feels Safe At This Time Assistive Devices: Oxygen - Continuous Review of Systems Review of Systems: All systems reviewed & are unremarkable except as noted in HPI & below Physical Exam Physical Exam: Temp Pulse Resp BP Pulse Ox O2 Del Method O2 Flow Rate 37.0 C 80 18 138/100 99 Nasal Cannula 2 09/14/25 14:20 09/14/25 17:00 09/14/25 14:20 09/14/25 17:00 09/14/25 14:20 09/14/25 08:20 09/14/25 14:20 General: no acute distress and stated age Eyes: conjunctiva are pink and non-injected, sclera clear Neck: normal jugular venous pulse, no hepatojugular reflux Chest: normal shape and normal respiratory effort Right sided tunneled dialysis catheter in place Lungs: clear to auscultation and percussion Cardiac Exam: - regular heart sounds, no murmurs, rubs, or gallops, no jugular venous distention Abdomen: abdomen soft, non-tender, no abnormal masses and no hepatosplenomegaly Musculoskeletal: no gait disturbance, no weakness Extremities: no edema and no cyanosis Neuro:awake, conversant, follows commands, no focal motor deficits Results & Data Laboratory Results Temp Pulse Resp BP Pulse Ox O2 Del Method O2 Flow Rate 37.0 C 80 18 138/100 99 Nasal Cannula 2 09/14/25 14:20 09/14/25 17:00 09/14/25 14:20 09/14/25 17:00 09/14/25 14:20 09/14/25 08:20 09/14/25 14:20 Diagnostic Findings Diagnostic Findings EKG performed 09/13/2025 revealed sinus tachycardia 106 bpm, nonspecific repolarization abnormalities. Summary of echocardiogram performed today 09/14/2025: Addendum: Ejection fraction reassessed, and found to be severely diminished in the range of 20 to 25%. Left ventricular systolic function is severely reduced. Left Ventricular Ejection Fraction = 20-25%. There is severe global hypokinesis of the left ventricle There is normal left ventricular wall thickness. There is mild mitral regurgitation. There is mild tricuspid regurgitation. The pulmonary artery systolic pressure is estimated at 39 mmHg (mildly elevated). Compared to the report of the previous study performed within the [facility] dated 02/29/24, the left ventricular ejection fraction was in the range of 15-20% at that time. Moderate-severe tricuspid regurgitation was observed at that time with pulmonary artery systolic pressure estimated to be in the range of 50-55 mm Hg that time. The left ventricular apical mural thrombus was also described at that time and is not appreciated on the present study. Chest x-ray on admission suggestive of pulmonary edema PG Care Time/CCT Total # of Minutes Spent Total Time Spent with Patient: Total time spent is greater than 50% in coordination of care (as documented) at patient's floor/unit and/or counseling patient: Coding Level of Care Code 52597 IN/OBS CONSULT LVL 5,80M Diagnoses HFrEF (heart failure with reduced ejection fraction) I50.20 Syncope R55 Anemia secondary to renal failure N18.9; D63.1 Pulmonary edema J81.1
--- NOTE | 2025-09-14 18:06 | Nephrology Consultation ---
Date of Consultation September 14, 2025 Assessment & Plan (1) Syncope: abrupt syncope w/ LOC at home on HHD top etiology is arrhythmia, though multiple etiologies possible -continue woodwind reeds cutter -continue cardiology w/u (2) ESRD on dialysis: on home HD under my care had HD today with minimal UF 200 mL, which is about her norm. challenging situation as her cardiac status makes her much more tolerant of slower/gentler home HD than of in center modality evaluate daily for need for HD > consider repeat treatment tomorrow (3) HFrEF (heart failure with reduced ejection fraction): encourage pt to adhere w/ close in cardiology f/u; f/u tele strips and planned zio results cont entresto (4) Pulmonary hypertension associated with chronic renal failure on dialysis: cont sildenafil (5) SLE (systemic lupus erythematosus): cont plaquenil, prednsione History of Present Illness Reason for Consultation: ESRD Requesting Physician: Dr Garcia Attending Physician: Abhishek Stein MD History of Present Illness 31-year-old female whom I am asked to evaluate for ESRD was admitted yesterday after a syncopal episode at home as she was completing home hemodialysis. PMH includes SLE on CellCept plaquenil and prednisone, ESRD on home hemodialysis via TDC, severe nonischemic cardiomyopathy with past ejection fraction as low as 15 to 20% and improved to 20 to 25% also with reported past medical history of, pulmonary hypertension, past LV mural thrombus. Cardiac arrest with successful CPR and possible fibrillation but few details of her prior medical history are available. She is in the process of establishing care with local providers after moving here from the [place] area this summer. She has followed at [facility] as well as at [facility]. She does solo HHD. She was coming off treatment and paused the treatment to get labs but passed out. She believes she was unconscious for 30 minutes based on timing when she woke up. D/t LOC she was unable to rinse blood back. States she passed out a few times afterward as well for shorter amounts Of time. Tells me she bit her lip but denies limb shaking or other injury. Denies presyncopal or orthostatic symptoms before passing out. Denies bowel or bladder incontinence. She did not tolerate gentle fluid resuscitation in ED which has been our experience with her in the outpatient dialysis clinic. She tolerates minimal fluid but also minimal fluid removal. Her hemoglobin today with small amount of fluid on board dropped to 6.7 as all other lines were also diluted. She was transfused one unit pRBC today. Cardiology is following and notes brief narrow complex tachycardia on rhythm strips overnight with possible atrial tachycardia versus sinus tachycardia. She has been advised in the past to wear LifeVest but declined this. S has in the past declined implantable defibrillator due to her multiple instances of infection and bacteremia. She dialyzes with a catheter and tells me that her cardiac status will not permit AV fistula creation. Cardiology recommends continuing Entresto and sildenafil as tolerated and repeat echocardiogram and Zio patch at discharge. She denies chest pain, worsening dyspnea, cramping to me. no f/c. Makes about one cup of urine daily; no change in chronic voiding habits.w weeks ago. Denies recent illness. No abdominal pain, nausea, vomiting, diarrhea. Allergies Allergy/AdvReac Type Severity Reaction Status Date / Time latex Allergy Unknown Unverified 09/13/25 16:41 heparin AdvReac Unknown Unverified 09/13/25 16:41 Home Medications Medication Instructions Recorded Confirmed Type hydroxychloroquine 200 mg tablet 200 mg PO Q OTHER DAY 07/23/25 09/13/25 History (Plaquenil) mycophenolate mofetil 200 mg/mL 620 mg PO BID 07/23/25 09/13/25 History oral suspension prednisone 5 mg tablet 5 mg PO DAILY 07/23/25 09/13/25 History sildenafil (pulm.hypertension) 20 20 mg PO TID 07/23/25 09/13/25 History mg tablet sacubitril 24 mg-valsartan 26 mg 1 tab PO BID #60 tabs 07/24/25 09/13/25 Rx tablet (Entresto) Patient History Social History Smoking Status: Never smoker Hx Alcohol Use: No Hx Substance Use: No Preferred Language: Kyrgyz Communication Ability: Effective Certification Technician Required: No Beliefs That Will Affect Care: None Current Living Situation: Significant Other and Other Current Living Situation Comment: With significant other and son Other Information That Helps Us Care for You: No Feels Safe at Home: Yes Safety Concerns: Feels Safe At This Time Assistive Devices: Oxygen - Continuous Review of Systems 2 Review of Systems: All systems reviewed & are unremarkable except as noted in HPI & below Physical Exam 2 Constitutional: well developed, + thin and cooperative; no acute distress Eyes: EOM intact bilaterally ENMT: Mouth: + dry oral mucous membranes Neck: no nuchal rigidity Respiratory: normal respiratory effort Auscultation: + diminished lung sounds and + crackles Cardiovascular: Rate/Rhythm: + tachycardic Extremities: no edema Gastrointestinal (Abdomen): Inspection/Auscultation: normal bowel sounds P ercussion/Palpation: abdomen soft; abdomen nontender Musculoskeletal: Extremities: strength 5/5 throughout Skin: no rashes, warm and dry Neurologic: diane, fluent speech, no tremor Results & Data Vital Signs (Past 12 Hours) Vital Signs Temp Pulse Pulse Pulse Resp BP BP 09/14/25 17:30 37.0 C 82 154/103 H 09/14/25 17:00 80 138/100 09/14/25 16:30 87 145/80 H 09/14/25 16:00 85 149/92 H 09/14/25 15:30 86 137/90 09/14/25 15:00 90 136/97 09/14/25 14:30 86 129/96 09/14/25 14:20 37.0 C 90 18 132/86 09/14/25 14:10 36.9 C 86 18 120/93 09/14/25 14:00 90 129/89 09/14/25 13:55 37.0 C 75 16 120/93 09/14/25 13:37 37.0 C 73 16 125/92 09/14/25 13:30 76 125/92 09/14/25 13:26 93 H 133/92 09/14/25 13:19 36.9 C 76 09/14/25 09:02 73 09/14/25 08:20 09/14/25 07:52 36.7 C 83 16 138/91 Pulse Ox O2 Del Method O2 Flow Rate 09/14/25 17:30 09/14/25 17:00 09/14/25 16:30 09/14/25 16:00 09/14/25 15:30 09/14/25 15:00 09/14/25 14:30 09/14/25 14:20 99 2 09/14/25 14:10 99 2 09/14/25 14:00 09/14/25 13:55 100 2 09/14/25 13:37 100 2 09/14/25 13:30 09/14/25 13:26 09/14/25 13:19 09/14/25 09:02 09/14/25 08:20 Nasal Cannula 2 09/14/25 07:52 100 Nasal Cannula 2 Laboratory Results 09/14/25 06:00 09/14/25 06:00
--- NOTE | 2025-09-14 18:27 | Dialysis Progress Note ---
Date of Service September 14, 2025 Assessment & Plan (1) Syncope: Plan: abrupt syncope w/ LOC at home on HHD top etiology is arrhythmia, though multiple etiologies possible -continue monitoring coordinator -continue cardiology w/u (2) ESRD on dialysis: Plan: on home HD under my care had HD today with minimal UF 200 mL, which is about her norm. challenging situation as her cardiac status makes her much more tolerant of slower/gentler home HD than of in center modality evaluate daily for need for HD > consider repeat treatment tomorrow (3) HFrEF (heart failure with reduced ejection fraction): Plan: encourage pt to adhere w/ close in cardiology f/u; f/u tele strips and planned zio results cont entresto (4) Pulmonary hypertension associated with chronic renal failure on dialysis: Plan: cont sildenafil (5) SLE (systemic lupus erythematosus): Plan: cont plaquenil, prednsione Admission and Anticipated Discharge Date Admission Date: September 14, 2025 Subjective seen and evaluated on HD. no worsening sob; tolerating treatment well. had pRBC. for minimal UF Review of Systems Review of Systems: All systems reviewed & are unremarkable except as noted in Subjective Physical Exam Constitutional: well developed, + thin and cooperative; no acute distress Eyes: EOM intact bilaterally ENMT: Mouth: + dry oral mucous membranes Neck: no nuchal rigidity Respiratory: normal respiratory effort Auscultation: + diminished lung sounds and + crackles Cardiovascular: Rate/Rhythm: + tachycardic Extremities: no edema Gastrointestinal (Abdomen): Inspection/Auscultation: normal bowel sounds Percussion/Palpation: abdomen soft; abdomen nontender Musculoskeletal: Extremities: strength 5/5 throughout Skin: no rashes, warm and dry Results & Data Vital Signs (Past 12 Hours) Vital Signs Temp Pulse Pulse Pulse Resp BP BP 09/14/25 17:30 37.0 C 82 154/103 H 09/14/25 17:00 80 138/100 09/14/25 16:30 87 145/80 H 09/14/25 16:00 85 149/92 H 09/14/25 15:30 86 137/90 09/14/25 15:00 90 136/97 09/14/25 14:30 86 129/96 09/14/25 14:20 37.0 C 90 18 132/86 09/14/25 14:10 36.9 C 86 18 120/93 09/14/25 14:00 90 129/89 09/14/25 13:55 37.0 C 75 16 120/93 09/14/25 13:37 37.0 C 73 16 125/92 09/14/25 13:30 76 125/92 09/14/25 13:26 93 H 133/92 09/14/25 13:19 36.9 C 76 09/14/25 13:00 88 09/14/25 09:02 73 09/14/25 08:20 09/14/25 07:52 36.7 C 83 16 138/91 Pulse Ox O2 Del Method O2 Flow Rate 09/14/25 17:30 09/14/25 17:00 09/14/25 16:30 09/14/25 16:00 09/14/25 15:30 09/14/25 15:00 09/14/25 14:30 09/14/25 14:20 99 2 09/14/25 14:10 99 2 09/14/25 14:00 09/14/25 13:55 100 2 09/14/25 13:37 100 2 09/14/25 13:30 09/14/25 13:26 09/14/25 13:19 09/14/25 13:00 09/14/25 09:02 09/14/25 08:20 Nasal Cannula 2 09/14/25 07:52 100 Nasal Cannula 2
--- NOTE | 2025-09-14 19:53 | Electrocardiogram Report ---
Test Reason : Blood Pressure : */* mmHG Vent. Rate : 106 BPM Atrial Rate : 106 BPM P-R Int : 150 ms QRS Dur : 86 ms QT Int : 394 ms P-R-T Axes : 56 -14 203 degrees QTcB Int : 523 ms Poor data quality, interpretation may be adversely affected Sinus tachycardia Biatrial enlargement Left ventricular hypertrophy ( R in aVL , Michael product , Romhilt-Anton ) Abnormal ECG When compared with ECG of 23-Jul-2025 20:40, Minimal criteria for Septal infarct are no longer Present T wave inversion now evident in Inferior leads T wave inversion more evident in Lateral leads Confirmed by Tejas Bacon ([id number]) on 09/14/2025 7:53:05 PM Referred By: REFERRED SELF Confirmed By: Tejas Bacon
[2025-09-15 07:05] LABS: Hematocrit (blood only) 24.2 % (37.0-47.0); Hemoglobin 7.5 g/dL (12.0-16.0); Mean Corpuscular Hemoglobin 28.3 pg (25.0-34.0); Mean Corpuscular Volume 91.3 fL (80.0-100.0); Platelet Count 171 K/uL (130-400); RDW Standard Deviation 48.5 fL (36.4-46.3); Red Blood Count 2.65 M/uL (4.20-5.40); White Blood Count 4.66 K/ul (4.8-10.8)
[2025-09-15 08:05] LABS: Anion Gap 10.0 (3-11); Blood Urea Nitrogen 25.0 mg/dl (6-23); Calcium 8.4 mg/dl (8.6-10.3); Carbon Dioxide 31.0 mmol/L (21-32); Chloride 103.0 mmol/L (98-107); Creatinine Clr Calc Pharmacy 12.3 ml/min; Glucose 93.0 mg/dl (70-99(Fasting)); Magnesium 1.8 mg/dl (1.7-2.4); Potassium 3.6 mmol/L (3.5-5.1); Sodium 144.0 mmol/L (136-145)
[2025-09-15 08:17] VITALS: RESP 16; TEMP 98.1
--- NOTE | 2025-09-15 11:43 | Hospitalist Progress Note ---
Date of Service September 15, 2025 Assessment & Plan (1) Syncope: Plan: 30 year old female with SLE on CellCept and prednisone, ESRD on home hemodialysis, HFrEF, pulmonary hypertension, and other problems listed below who presents to the ED after syncopal episode. Patient reports she was at the end of her dialysis treatment when she passed out. She thinks she may have been unconscious for about 30 minutes. In the ED, labs show hgb 7.4, K+ 2.7, HS troponin 63.5. EKG shows t-wave inversions in the lateral leads. Patient was given IVF and became short of breath and required 2L NC. Patient reports she is feeling improved. Syncope DD: Vasovagal, hypotension, hypoxia, rule out arrhythmia, electrolyte imbalance --CT Head:No acute intracranial abnormality. --ECHO: Moderate global hypokinesis of left ventricle. --Normal orthostatics --H/O Cardiac cath 07/2023 without CAD per record Patient admits to being noncompliant with supplemental oxygen Monitor on telemetry Will need Zio patch, repeat echo as outpatient Appreciate cardiology input Replace and monitor electrolytes as needed Plan to be discharged home today Acute on chronic anemia Denies any bleeding issues Likely due to anemia of chronic disease --Iron level 56 S/P 1 unit PRBC Monitor H&H Will defer Procrit to nephrology Troponin elevation Likely demand ischemia in setting of hypertensive urgency, renal failure Denies any chest pain Echo showed no wall motion abnormality Troponin trended down Chronic respiratory failure with hypoxia Secondary to pulmonary hypertension Has been noncompliant with supplemental oxygen use 2 step: Did not qualify for supplemental oxygen Continue sildenafil Offered nocturnal oximetry study: Patient refused and preferred to be discharged home Advised to follow-up with pulmonology as outpatient Also offered to establish primary care physician locally, patient refused (2) Acute on chronic anemia: Plan: Management as above (3) ESRD on dialysis: Plan: Volume overload On home hemodialysis via right TDC Dialysis as per nephrology Appreciate nephrology input Volume status managed through dialysis Plan for dialysis on Wednesday at facility per nephrology (4) Acute hypokalemia: Plan: Management as above (5) HFrEF (heart failure with reduced ejection fraction): Plan: Noncompliant with medication use Reports nausea with Entresto (admits to use about once a week) Counseled on importance of medication compliance EF better when compared to prior echo Continue Entresto, sildenafil Appreciate cardiology input (6) Pulmonary hypertension associated with chronic renal failure on dialysis: Plan: Continue PRESS WASHER sildenafil (7) SLE (systemic lupus erythematosus): Plan: Continue CellCept, prednisone, hydroxychloroquine (8) LV (left ventricular) mural thrombus: Plan: No longer on anticoagulation DVT Px: SCDs for now CODE STATUS Full code Disposition Home Admission and Anticipated Discharge Date Admission Date: September 14, 2025 Subjective Patient is seen and examined at bedside Offers no complaints Eager to get discharged Patient had 2 step earlier today Discussed with nephrology Denies any chest pain, dyspnea, dizziness, nausea, vomiting, abdominal pain Review of Systems Review of Systems: All systems reviewed & are unremarkable except as noted in Subjective Physical Exam Physical Exam: Physical Exam: Vitals signs as noted above General Appearance:Thin, frail, no apparent distress Head: normocephalic, Atraumatic Eyes: normal inspection, EOMI Neck: supple, Trachea midline Respiratory/Chest: Normal breath sounds, B/L basal crackles, No accessory muscle use Cardiovascular: S1, S2, No murmur Abdomen/GI:Soft, Non tender, Bowel sounds present Extremities/Musculoskeletal:normal inspection, no edema Neurologic/Psych:AAOX3, grossly no focal neurological deficits Skin: normal color, warm Results & Data Results & Data Vital Signs (Past 12 Hours) Vital Signs Temp Pulse Pulse Pulse Pulse Resp Resp 09/15/25 10:07 107 H 90 18 09/15/25 08:42 09/15/25 08:16 36.7 C 73 16 09/15/25 06:49 78 09/15/25 03:57 36.6 C 74 18 Resp BP Pulse Ox Pulse Ox Pulse Ox O2 Del Method O2 Flow Rate 09/15/25 10:07 16 99 99 09/15/25 08:42 Nasal Cannula 2 09/15/25 08:16 144/92 H 100 Nasal Cannula 2 09/15/25 06:49 09/15/25 03:57 128/86 100 Nasal Cannula 2 Laboratory Results Short CBC 09/15/25 Range/Units 06:09 WBC 4.66 L (4.8-10.8) K/ul Hgb 7.5 L (12.0-16.0) g/dL Hct 24.2 L (37.0-47.0) % Plt Count 171 (130-400) K/uL BMP 09/15/25 06:09 Sodium 144 Potassium 3.6 Chloride 103 Carbon Dioxide 31 BUN 25 H Creatinine 5.35 H* D Glucose 93 Calcium 8.4 L
--- NOTE | 2025-09-15 11:54 | Discharge Summary ---
Date of Service September 15, 2025 Admission HPI Per Admitting Provider 30 year old female with SLE on CellCept and prednisone, ESRD on home hemodialysis, HFrEF, pulmonary hypertension, LV thrombus, and other problems listed below who presents to the ED after syncopal episode. Patient reports she was at the end of her dialysis treatment when she passed out. She thinks she may have been unconscious for about 30 minutes. Reports she started home hemodialysis a few weeks ago. Reports she otherwise has been feeling well recently. Denies any other recent illnesses, fever, or chills. No chest pain or shortness of breath. Denies abdominal pain, nausea, vomiting, diarrhea. No urinary symptoms. In the ED, labs show hgb 7.4, K+ 2.7, HS troponin 63.5. EKG shows t-wave inversions in the lateral leads. Patient was given IVF and became short of breath and required 2L NC. Patient reports she is feeling improved. Admission Exam Per Admitting Provider Constitutional: WD/WN, vitals as above no acute distress Respiratory: normal respiratory effort; no respiratory distress Auscultation: + diminished lung sounds Cardiovascular: Rate/Rhythm: regular rate and regular rhythm Vessels: normal peripheral pulses Extremities: no edema Chest (Breasts): Chest: + vascular access device or port (TDC right chest) Skin: no rashes, warm and dry Neurologic: no focal motor deficits Psychiatric: A+Ox3, euthymic affect Principal Diagnosis Syncope End-stage renal disease on dialysis Anemia of chronic disease Hypokalemia Pulmonary hypertension Discharge Data Allergies Allergy/AdvReac Type Severity Reaction Status Date / Time latex Allergy Unknown Unverified 09/13/25 16:41 heparin AdvReac Unknown Unverified 09/13/25 16:41 Consultations 09/13/25 16:30 ED Decision to Admit Stat 09/13/25 18:33 Consult Nephrology Routine 09/14/25 15:07 Consult Cardiology Routine Procedures Performed Laboratory Results WBC 4.66 K/ul (4.8-10.8) L 09/15/25 06:09 RBC 2.65 M/uL (4.20-5.40) L 09/15/25 06:09 Hgb 7.5 g/dL (12.0-16.0) L 09/15/25 06:09 Hct 24.2 % (37.0-47.0) L 09/15/25 06:09 MCV 91.3 fL (80.0-100.0) 09/15/25 06:09 MCH 28.3 pg (25.0-34.0) 09/15/25 06:09 MCHC 31.0 g/dL (32.0-36.0) L 09/15/25 06:09 RDW Std Deviation 48.5 fL (36.4-46.3) H 09/15/25 06:09 RDW Coeff of Ignacio 14.5 % (11.5-14.5) 09/15/25 06:09 Plt Count 171 K/uL (130-400) 09/15/25 06:09 MPV 11.1 fL (9.4-12.4) 09/15/25 06:09 Immature Gran % (Auto) 0.4 % 09/13/25 15:20 Neut % (Auto) 85.3 % 09/13/25 15:20 Lymph % (Auto) 5.2 % 09/13/25 15:20 [place] % (Auto) 8.3 % 09/13/25 15:20 Eos % (Auto) 0.5 % 09/13/25 15:20 Baso % (Auto) 0.3 % 09/13/25 15:20 Neut # (Auto) 6.26 K/uL (1.40-6.50) 09/13/25 15:20 Lymph # (Auto) 0.38 K/uL (1.20-3.40) L 09/13/25 15:20 [place] # (Auto) 0.61 K/uL (0.11-0.59) H 09/13/25 15:20 Eos # (Auto) 0.04 K/uL (0.00-0.50) 09/13/25 15:20 Baso # (Auto) 0.02 K/uL (0.00-0.20) 09/13/25 15:20 Immature Gran # (Auto) 0.03 K/uL (0.01-0.20) 09/13/25 15:20 Absolute Nucleated RBC Cancelled 09/13/25 12:29 Nucleated RBC % (auto) Cancelled 09/13/25 12:29 Neutrophils % (Manual) Cancelled 09/13/25 12:29 Band Neutrophils % Cancelled 09/13/25 12:29 Lymphocytes % (Manual) Cancelled 09/13/25 12:29 Prolymphocyte % Cancelled 09/13/25 12:29 Reactive Lymphs % (Man) Cancelled 09/13/25 12:29 Monocytes % (Manual) Cancelled 09/13/25 12:29 Eosinophils % (Manual) Cancelled 09/13/25 12:29 Basophils % (Manual) Cancelled 09/13/25 12:29 Metamyelocytes % (Man) Cancelled 09/13/25 12:29 Myelocytes % (Man) Cancelled 09/13/25 12:29 Promyelocytes % (Man) Cancelled 09/13/25 12:29 Blast Cells % (Manual) Cancelled 09/13/25 12:29 Plasma Cell % (Manual) Cancelled 09/13/25 12:29 Other Cells % Cancelled 09/13/25 12:29 Nucleated RBC % Cancelled 09/13/25 12:29 Neutrophils # (Manual) Cancelled 09/13/25 12:29 Band Neutrophils # Cancelled 09/13/25 12:29 Total Absolute Neuts Cancelled 09/13/25 12:29 Lymphocytes # (Manual) Cancelled 09/13/25 12:29 Prolymphocyte # Cancelled 09/13/25 12:29 Reactive Lymphs # Cancelled 09/13/25 12:29 Total Abs Lymphocytes Cancelled 09/13/25 12:29 Monocytes # (Manual) Cancelled 09/13/25 12:29 Eosinophils # (Manual) Cancelled 09/13/25 12:29 Basophils # (Manual) Cancelled 09/13/25 12:29 Metamyelocytes # (Man) Cancelled 09/13/25 12:29 Myelocytes # (Manual) Cancelled 09/13/25 12:29 Promyelocytes # (Man) Cancelled 09/13/25 12:29 Blast Cells # (Man) Cancelled 09/13/25 12:29 Plasma Cell # (Manual) Cancelled 09/13/25 12:29 Other Cells # Cancelled 09/13/25 12:29 Nucleated RBCs # (Man) Cancelled 09/13/25 12:29 Hypersegmented Neuts Cancelled 09/13/25 12:29 Hyposegmented Neuts Cancelled 09/13/25 12:29 Hypogranular Neuts Cancelled 09/13/25 12:29 Large Granular Lymphs Cancelled 09/13/25 12:29 # Lrg Granular Lymphs Cancelled 09/13/25 12:29 Hairy Cells Cancelled 09/13/25 12:29 Smudge Cells Cancelled 09/13/25 12:29 Toxic Granulation Cancelled 09/13/25 12:29 Toxic Vacuolation Cancelled 09/13/25 12:29 Dohle Bodies Cancelled 09/13/25 12:29 Jocelyn Rods Cancelled 09/13/25 12:29 Platelet Estimate Cancelled 09/13/25 12:29 Hypogranular Platelets Cancelled 09/13/25 12:29 Giant Platelets Cancelled 09/13/25 12:29 Platelet Satelliting Cancelled 09/13/25 12:29 RBC Morphology Cancelled 09/13/25 12:29 Polychromasia Cancelled 09/13/25 12:29 Hypochromasia Cancelled 09/13/25 12:29 Poikilocytosis Cancelled 09/13/25 12:29 Basophilic Stippling Cancelled 09/13/25 12:29 Anisocytosis Present 09/13/25 15:20 Microcytosis Cancelled 09/13/25 12:29 Macrocytosis Cancelled 09/13/25 12:29 Spherocytes Cancelled 09/13/25 12:29 Pappenheimer Bodies Cancelled 09/13/25 12:29 Sickle Cells Cancelled 09/13/25 12:29 Target Cells Cancelled 09/13/25 12:29 Tear Drop Cells 1+ 09/13/25 15:20 Ovalocytes 1+ 09/13/25 15:20 Stomatocytes Cancelled 09/13/25 12:29 Castaneda-Crewe Bodies Cancelled 09/13/25 12:29 Echinocytes Cancelled 09/13/25 12:29 Acanthocytes (Spur) Cancelled 09/13/25 12:29 Rouleaux Cancelled 09/13/25 12:29 RBC Agglutinates Cancelled 09/13/25 12:29 Schistocytes Cancelled 09/13/25 12:29 Sezary Cell Cancelled 09/13/25 12:29 Sodium 144 mmol/L (136-145) 09/15/25 06:09 Potassium 3.6 mmol/L (3.5-5.1) 09/15/25 06:09 Chloride 103 mmol/L (98-107) 09/15/25 06:09 Carbon Dioxide 31 mmol/L (21-32) 09/15/25 06:09 Anion Gap 10 (3-11) 09/15/25 06:09 BUN 25 mg/dl (6-23) H 09/15/25 06:09 Creatinine 5.35 mg/dl (0.6-1.2) H* D 09/15/25 06:09 Est Cr Clr Drug Dosing 12.3 ml/min 09/15/25 06:09 eGFR 10.26 09/15/25 06:09 BUN/Creatinine Ratio 4.7 (10-20) L 09/15/25 06:09 Glucose 93 mg/dl (70-99(Fasting)) 09/15/25 06:09 Calcium 8.4 mg/dl (8.6-10.3) L 09/15/25 06:09 Phosphorus 3.4 mg/dl (2.5-4.9) 09/15/25 06:09 Magnesium 1.8 mg/dl (1.7-2.4) 09/15/25 06:09 Iron 56 mcg/dl (35-150) 09/13/25 12:29 Transferrin 181 mg/dl (200-360) L 09/13/25 12:29 Ferritin 573.7 ng/ml (8-388) H 09/13/25 12:29 Total Bilirubin 0.3 mg/dl (0.2-1.0) 09/13/25 12:29 AST 17 U/L (13-39) 09/13/25 12:29 ALT 8 U/L (7-52) 09/13/25 12:29 Alkaline Phosphatase 107 U/L (34-104) H 09/13/25 12:29 Troponin I High Sens 107.6 pg/ml (0-14) H* 09/14/25 00:25 Total Protein 9.3 gm/dl (6.0-8.3) H 09/13/25 12:29 Albumin 4.9 gm/dl (3.4-5.0) 09/13/25 12:29 Globulin 4.4 gm/dl (2.5-4.0) H 09/13/25 12:29 Albumin/Globulin Ratio 1.1 (0.9-2) 09/13/25 12:29 Procalcitonin 0.66 ng/ml (0-0.5) H 09/15/25 06:09 Hep Bs Antigen Negative (Negative) 09/14/25 11:27 Hep Bs Antibody Non-Immune 09/14/25 11: Hep Bs Antibody, Quant 9.48 mIU/mL (>or=10mIU/mL Immune) 09/14/25 11:27 Blood Parasites ID Cancelled 09/13/25 12:29 Blood Type O Positive 09/13/25 12:12 Blood Type Recheck O Positive 09/14/25 11:27 Antibody Screen NEGATIVE 09/13/25 12:12 Crossmatch See Detail 09/13/25 12:12 Impressions Chest X-Ray 09/13/25 00:00 XR chest 2V PA/lateral CLINICAL HISTORY: Shortness of breath. COMPARISON STUDY: Chest radiograph July 23, 2025. FINDINGS: There is moderate elevation of the right hemidiaphragm. A dual lumen right internal jugular central venous catheter remains in place. Mild enlargement of the cardiac silhouette is unchanged. Mediastinal contours are stable. There is no pneumothorax. There are suspected trace bilateral pleural effusions. Interstitial thickening has developed. There are mild left basilar opacities. IMPRESSION: 1. Interval development of interstitial thickening suggestive of interstitial pulmonary edema. 2. Mild left basilar opacities. A superimposed infectious process cannot be excluded. Radiographic follow-up to ensure resolution is recommended. ACT 112: Negative or not required by law. Electronically signed by: Mandeep Garcia M.D. 09/13/2025 1:[address] 09/14/25 07:53 CT head/brain wo con CLINICAL HISTORY: 30 years-old Female with Syncope. Acute syncope TECHNIQUE: Multiple axial CT images of the head were obtained without contrast. A dose lowering technique was utilized adhering to the principles of ALARA. CT DOSE: 625.8 mGy.cm COMPARISON: None. FINDINGS: No acute intracranial hemorrhage, midline shift, intracranial mass, hydrocephalus, territorial ischemia or abnormal extra-axial collection. Coarse calcifications of the falx cerebri. Additional small calcifications in the left lentiform nucleus. The calvarium is intact. Minimal mucosal thickening of the paranasal sinuses. Mastoid air cells are clear. IMPRESSION: No acute intracranial abnormality. ACT 112: Negative or not required by law. The above report was generated using voice recognition software. It may contain grammatical, syntax or spelling errors. Electronically signed by: Kameron Saxena M.D. 09/14/2025 9:48 AM Ordered Studies 09/14/25 07:53 CT head/brain wo con Urgent Hospital Course (1) Syncope: 30 year old female with SLE on CellCept and prednisone, ESRD on home hemodialysis, HFrEF, pulmonary hypertension, and other problems listed below who presents to the ED after syncopal episode. Patient reports she was at the end of her dialysis treatment when she passed out. She thinks she may have been unconscious for about 30 minutes. In the ED, labs show hgb 7.4, K+ 2.7, HS troponin 63.5. EKG shows t-wave inversions in the lateral leads. Patient was given IVF and became short of breath and required 2L NC. Patient reports she is feeling improved. Syncope DD: Vasovagal, hypotension, hypoxia, rule out arrhythmia, electrolyte imbalance --CT Head:No acute intracranial abnormality. --ECHO: Moderate global hypokinesis of left ventricle. --Normal orthostatics --H/O Cardiac cath 07/2023 without CAD per record Patient admits to being noncompliant with supplemental oxygen Monitor on telemetry Will need Zio patch, repeat echo as outpatient Appreciate cardiology input Replace and monitor electrolytes as needed Plan to be discharged home today Acute on chronic anemia Denies any bleeding issues Likely due to anemia of chronic disease --Iron level 56 S/P 1 unit PRBC Monitor H&H Will defer Procrit to nephrology Troponin elevation Likely demand ischemia in setting of hypertensive urgency, renal failure Denies any chest pain Echo showed no wall motion abnormality Troponin trended down Chronic respiratory failure with hypoxia Secondary to pulmonary hypertension Has been noncompliant with supplemental oxygen use 2 step: Did not qualify for supplemental oxygen Continue sildenafil Offered nocturnal oximetry study: Patient refused and preferred to be discharged home Advised to follow-up with pulmonology as outpatient Also offered to establish primary care physician locally, patient refused (2) Acute on chronic anemia: Management as above (3) ESRD on dialysis: Volume overload On home hemodialysis via right TDC Dialysis as per nephrology Appreciate nephrology input Volume status managed through dialysis Plan for dialysis on Wednesday at facility per nephrology (4) Acute hypokalemia: Management as above (5) HFrEF (heart failure with reduced ejection fraction): Noncompliant with medication use Reports nausea with Entresto (admits to use about once a week) Counseled on importance of medication compliance EF better when compared to prior echo Continue Entresto, sildenafil Appreciate cardiology input (6) Pulmonary hypertension associated with chronic renal failure on dialysis: Continue SOFTWARE QUALITY ANALYST sildenafil (7) SLE (systemic lupus erythematosus): Continue CellCept, prednisone, hydroxychloroquine (8) LV (left ventricular) mural thrombus: No longer on anticoagulation DVT Px: SCDs for now CODE STATUS Full code Disposition Home Total Time Total Time Spent Total Time Spent (In Minutes): 53 minutes Discharge Plan Discharge Items Patient Disposition: Home - Self-Care Reason For Visit: SYNCOPE Discharge Diagnosis: Syncope End-stage renal disease on dialysis Anemia of chronic disease Hypokalemia Pulmonary hypertension Condition on Discharge: Good Activity: Per Instructions section Driving/Machine Use: Driving not permitted until cleared by your assembler knife. Non-emergency contact: Primary Care Provider, Inspecting Engineer, Client Development Consultant and Mess Attendant Crew Call non-emergency contact if: you have any medication questions, your symptoms worsen, your pain is concerning for you and you have a fever Follow-up/Referrals: Joan Denis MD [Primary Care Provider] - (Date & Time 09/20/2025 11:00 AM Provider: Radha Fisher MD General Internal Medicine [facility] ) Breonna Rollins PA-C [Physician Call Or Contact Centre Coach] - (Date & Time 09/25/2025 3:00 PM Provider: Breonna Rollins PA-C Cardiology, [place] ) Diet: Dialysis Renal Fluids: 1800ml (7 cups) Addtl Attending Provider Instructions: --Follow-up with your primary care physician Dr. Denis on 09/20/2025 11:00 AM --Follow-up with your assembler knife Dr. Eden/Breonna Rollins on 09/25/2025 3:00 PM for Zio monitor and repeat ECHO as recommended --Follow-up with your instructor robotics for dialysis as recommended --Follow with your mold technician for further management of your pulmonary hypertension and respiratory failure --Do not drive until cleared by your assembler knife. --Take medications regularly as recommended. Seek immediate medical attention if your symptoms reoccur or worsen Please review medication list provided on discharge for any medication changes as instructed. Please call if you have any questions or problems. You can reach a [facility] hospitalist on duty at [facility] 24 hours a day by calling [phone] Pending Studies at Discharge: No Stand-Alone Forms: My [facility], Smoking Cessation Medications and DC Order Prescriptions: Continued prednisone 5 mg Tablet 5 mg PO DAILY hydroxychloroquine [Plaquenil] 200 mg Tablet 200 mg PO Q OTHER DAY sildenafil (pulm.hypertension) 20 mg Tablet 20 mg PO TID Rx Instructions: administer doses at least 4-6 hours apart mycophenolate mofetil 200 mg/mL Suspension 620 mg PO BID sacubitril-valsartan [Entresto] 24-26 mg tablet 1 tab PO BID Qty: 60 0RF Discharge Orders: Discharge Order (Routine); Ordered 09/15/25 Ordered By: Abhishek Stein Admission Data Admit Date/Time: 09/14/25 11:38 Attending Provider: Abhishek Stein Admit Provider: Dipesh Garcia Primary Care Provider: Joan Denis Other Providers: Dipesh Garcia; Veronika Dee; Silverio Eden
[2025-09-15 11:55] VITALS: O2SAT 100
[2025-09-15 12:09] VITALS: BP 145/95; PULSE 91
== END 2025-09-15 12:25 | disposition home or self-care (01) | DRG 312 ==
LOC: ED 11:05 → 2W 11:05 → SUATTDRO 17:04 → 2W 18:25